=== PATIENT | female | born 1975 ===

== ENCOUNTER 2017-03-16 11:30 | Observation (INO) | payer OTHER ==
[2017-03-16 11:51] VITALS: O2SAT 98
[2017-03-16] MEDS ORDERED: DiphenhydrAMINE 50 mg/ml Inj ONE (12:55)
--- NOTE | 2017-03-16 14:23 | ED PDOC ---
HPI: General Adult Time Seen by Provider: 03/16/17 12:07 Chief Complaint (Nursing): Lower Extremity Problem/Injury History Per: Patient Additional Complaint(s): Pt. states for the since the weekend she's had b/l lower leg swelling greatest in the L. Also reports today she began to feel some swelling to both hands. Also reports having pain to both sides of her lower back. Denies hematuria, dysuria, numbness, tingling, chest pain, SOB, palpitations, fever, trauma. Past Medical History Reviewed: Historical Data, Nursing Documentation, Vital Signs Vital Signs: Last Vital Signs Temp 98.3 F 03/16/17 11:54 Pulse 90 03/16/17 11:54 Resp 20 03/16/17 11:54 BP 117/70 03/16/17 11:54 Pulse Ox 98 03/16/17 17:21 - Family History Family History: States: No Known Family Hx - Home Medications Home Medications: Ambulatory Orders Medication Instructions Recorded Acetaminophen with Codeine 1 tab PO Q4 PRN #10 tab 02/07/16 [Tylenol with Codeine No. 3 300 mg-30 mg] Oxycodone HCl/Acetaminophen 1 tab PO Q4 #10 tab 02/07/16 [Percocet 325 mg-5 mg] Penicillin V Potassium 500 mg PO BID #14 tab 02/07/16 - Allergies Allergies/Adverse Reactions: Allergies Allergy/AdvReac Type Severity Reaction Status Date / Time No Known Allergies Allergy Verified 03/16/17 11:54 Review of Systems ROS Statement: Except As Marked, All Systems Reviewed And Found Negative Musculoskeletal: Positive for: Leg Pain Physical Exam - Reviewed Nursing Documentation Reviewed: Yes Vital Signs Reviewed: Yes - Physical Exam Appears: Positive for: Well, Non-toxic, No Acute Distress Head Exam: Positive for: ATRAUMATIC, NORMAL INSPECTION, NORMOCEPHALIC Skin: Positive for: Normal Color, Warm. Negative for: Rash Eye Exam: Positive for: EOMI, Normal appearance, PERRL ENT: Positive for: Normal ENT Inspection Neck: Positive for: Normal, Painless ROM Cardiovascular/Chest: Positive for: Regular Rate, Rhythm Respiratory: Positive for: CNT, Normal Breath Sounds Pulses-Dorsalis Pedis (L): 2+ Pulses-Dorsalis Pedis (R): 2+ Pulses-Radial (L): 2+ Pulses-Radial (R): 2+ Gastrointestinal/Abdominal: Positive for: Normal Exam, Bowel Sounds, Soft. Negative for: Tenderness Back: Positive for: Normal Inspection Extremity: Positive for: Normal ROM. Negative for: Pedal Edema, Calf Tenderness (b/l without swelling) Neurologic/Psych: Positive for: Alert, Oriented - Laboratory Results Result Diagrams: 03/16/17 13:40 03/16/17 13:40 - ECG O2 Sat by Pulse Oximetry: 98 - Progress ED Course And Treament: Labs ordered. Duplex b/l lower extremities vein ordered. ED OBSERVATION Discharge: Yes Date of observation admission: 03/16/17 Time of observation admission: 12:56 - Progress Note Progress Note: 03/16/17 15:20 Pt. in no distress. Pending US results. 03/16/17 16:[address] abd/pelvis w/o contrast ordered. Toradol 15mg IV, zofran 4mg IV. Duplex b/l lower extremities vein: no DVT. 03/16/17 17:21 Pt. en route to CT. No apparent distress. 03/16/17 18:23 CT head w/o contrast: Fatty infiltration of the liver. No acute findings. There is a left ovarian cyst measuring 2.6 x 5.4 cm. There is no evidence of free fluid to suggest cyst rupture. Pt. reports good relief of pain. Pt. informed of results and instructed to f/u with PMD and [facility]ER[facility] [employer]IC[facility] for further evaluation. Disposition - Clinical Impression Clinical Impression: Peripheral edema, Fatty liver, Ovarian cyst - Patient ED Disposition Is Patient to be Admitted: No - Disposition Disposition: Routine/Home Disposition Time: 18:24 Condition: IMPROVED
[2017-03-16 14:28] LABS: BASO % 0.5 % (0.0-2.0); EOS # 0.1 K/uL (0.0-0.7); HEMOGLOBIN 12.6 g/dL (12.0-16.0); LYMPH # 2.5 K/uL (1.0-4.3); LYMPH % 26.3 % (20.0-40.0); MEAN CELL VOLUME 94.7 fl (81.0-99.0); MEAN CORPUSCULAR HEMOGLOBIN 31.9 pg (27.0-31.0); MEAN CORPUSCULAR HGB CONC 33.7 g/dL (33.0-37.0); MEAN PLATELET VOLUME 8.7 fl (7.2-11.7); MONO # 0.6 K/uL (0.0-0.8); MONO % 6.8 % (0.0-10.0); NEUT # 6.1 K/uL (1.8-7.0); NEUT % 65.4 % (50.0-75.0); NRBC % 0.1 % (0.0-0.0); RBC 3.95 Mil/uL (3.80-5.20); RED CELL DISTRIBUTION WIDTH 13.5 % (11.5-14.5); WHITE BLOOD COUNT 9.3 K/uL (4.8-10.8)
[2017-03-16 14:32] LABS: SQUAMOUS EPITHIAL < 1 /hpf (0-5); URINE BACTERIA RARE (<OCC); URINE BILIRUBIN NEGATIVE (NEGATIVE); URINE BLOOD SMALL (NEGATIVE); URINE CLARITY CLEAR (Clear); URINE COLOR YELLOW (YELLOW); URINE GLUCOSE (UA) NEG (Normal); URINE LEUKOCYTE ESTERASE NEG Leu/uL (Negative); URINE NITRATE NEGATIVE (NEGATIVE); URINE PROTEIN NEGATIVE (NEGATIVE); URINE UROBILINOGEN 0.2-1.0 mg/dL (0.2-1.0)
[2017-03-16 14:50] LABS: ALB/GLOB RATIO 1.3 (1.0-2.1); ALBUMIN 3.8 g/dL (3.5-5.0); ALT/SGPT 54 U/L (9-52); AST/SGOT 30 U/L (14-36); BLOOD UREA NITROGEN 12 mg/dl (7-17); CALCIUM 9.1 mg/dL (8.4-10.2); GFR AFRICAN-AMERICAN > 60; GFR NON-AFRICAN AMERICAN > 60
[2017-03-16 14:57] LABS: B-TYPE NATRIURETIC PEPTIDE 89.9 pg/ml (0-450)
--- NOTE | 2017-03-16 16:00 | US ---
PROCEDURE: Bilateral lower extremity venous duplex Doppler. HISTORY: b/l pain COMPARISON: None available. TECHNIQUE: Bilateral common femoral, superficial femoral, popliteal and posterior tibial veins were evaluated. Flow was assessed with color Doppler, compressibility, assessment of phasic flow and augmentation response. FINDINGS: COMMON FEMORAL VEIN: Right CFV: Unremarkable. Left CFV: Unremarkable. SUPERFICIAL FEMORAL VEIN: Right SFV: Unremarkable. Left SFV: Unremarkable. POPLITEAL VEIN: Right Popliteal: Unremarkable. Left Popliteal: Unremarkable. POSTERIOR TIBIAL VEIN: Right PTV: Unremarkable. Left PTV: Unremarkable. OTHER FINDINGS: None. IMPRESSION: No evidence of deep venous thrombosis in the right or left lower extremity. .
[2017-03-16] MEDS ORDERED: Sodium Chloride 0.9% 1,000 ML IV STA (16:30)
--- NOTE | 2017-03-16 18:11 | CT ---
PROCEDURE: CT Abdomen and Pelvis without intravenous contrast HISTORY: hematuria, back pain COMPARISON: None. TECHNIQUE: Without contrast.. Contrast Dose: Radiation dose: Total exam DLP = 1017 mGy-cm. This CT exam was performed using one or more of the following dose reduction techniques: Automated exposure control, adjustment of the mA and/or kV according to patient size, and/or use of iterative reconstruction technique. FINDINGS: LOWER THORAX: Unremarkable. LIVER: There is severe fatty infiltration of the liver. GALLBLADDER AND BILE DUCTS: Unremarkable. PANCREAS: Unremarkable. No gross lesion or ductal dilatation. SPLEEN: Unremarkable. ADRENALS: Unremarkable. No mass. KIDNEYS AND URETERS: Unremarkable. No hydronephrosis. No solid mass. VASCULATURE: Unremarkable. No aortic aneurysm. BOWEL: Unremarkable. No obstruction. No gross mural thickening. APPENDIX: Unremarkable. Normal appendix. PERITONEUM: Unremarkable. No free fluid. No free air. LYMPH NODES: Unremarkable. No enlarged lymph nodes. BLADDER: Unremarkable. REPRODUCTIVE: There is a left ovarian cyst measuring 2.6 x 5.4 cm. There is no evidence of free fluid to suggest cyst rupture. BONES: No acute fracture. OTHER FINDINGS: None. IMPRESSION: Fatty infiltration of the liver. No acute findings
[2017-03-16 18:37] VITALS: BP 112/72; PULSE 75; RESP 16; TEMP 98
== END 2017-03-16 19:00 | disposition home or self-care (01) ==
LOC: H.ER 11:30 → H.EROBSV 12:56
PROVIDERS: ADMIT Emergency Medicine; ATTEND Emergency Medicine
DX: R60.0 Localized edema (principal); K76.0 Fatty (change of) liver, not elsewhere classified; N83.202 Unspecified ovarian cyst, left side